=== PATIENT | male | born 1980 | race Caucasian/White ===

== ENCOUNTER 2017-05-09 02:31 | Emergency (ER) | payer OTHER ==
[~2017-05-09] VITALS: Ht 175.3 cm; Wt 97.7 kg
[2017-05-09 03:20] LABS: MCH 28.2 PG (29.0-34.0); MCHC 32.5 G/DL (30.0-36.0); MCV 86.8 FL (86-99); MEAN PLAT.VOLUME 9.7 uM^3 (9.0-12.4); PLATELET COUNT 246 K/uL (156-360); RBC DIS.WIDTH-CV 13.2 % (11.8-14.6); RBC DIS.WIDTH-SD 41.9 % (39-53); RED BLOOD COUNT 5.07 M/uL (4.00-5.50); WHITE BLOOD COUNT 6.7 K/uL (4.1-10.2)
[2017-05-09 03:30] LABS: CHLORIDE 108 mEq/L (99-109); POTASSIUM 3.8 mEq/L (3.7-5.4); SODIUM 140 mEq/L (136-147)
[2017-05-09 03:33] LABS: GLUCOSE 113 mg/dL (70-99)
[2017-05-09 03:34] LABS: ANION GAP 9 MEQ/L (2-14)
[2017-05-09 03:35] LABS: TOTAL BILIRUBIN 0.3 mg/dL (0.0-1.0)
[2017-05-09 03:36] LABS: ALKALINE PHOSPHATASE 65 IU/L (3-129); GFR ESTIMATE (CALCULATED) > 59 mL/min/
[2017-05-09 03:37] LABS: UREA NITROGEN (BUN) 23 mg/dL (9-23)
[2017-05-09 03:40] LABS: LIPASE 21 U/L (1.0-51.0)
[2017-05-09 03:49] LABS: ADD MIUA? NO; BILIRUBIN NEGATIVE; BLOOD NEGATIVE; COLOR YELLOW ((YELLOW)); GLUCOSE (STRIP) NEGATIVE; KETONES NEGATIVE; LEUKOCYTES NEGATIVE; NITRITE NEGATIVE; PROTEIN (STRIP) NEGATIVE; SPECIFIC GRAVITY 1.021 (1.000-1.030); UCUL ADDED? NO; UROBILINOGEN 0.2 MG/DL (0.2-1.0)
[2017-05-09] MEDS ORDERED: BENTYL20 MG PO (04:36)
[2017-05-09 05:12] VITALS: BP 158/107
== END 2017-05-09 05:13 | disposition home or self-care (01) ==
LOC: EME 02:31
DX: R10.33 Periumbilical pain (principal); R11.2 Nausea with vomiting, unspecified
CPT/HCPCS: 74177; 80053; 81003; 83690; 85027; 99281; 99284; J7030